=== PATIENT | female | born 1935 | race Caucasian/White ===

== ENCOUNTER 2021-12-01 07:13 | Day surgery (SDC) | payer MEDICARE, SELFPAY ==
[2021-12-01] VITALS (9 sets, daily range): BP systolic 97–132; BP diastolic 52–76; PULSE 66–75; RESP 16–18; TEMP 36.4–37; O2SAT 92–98; BMI 21.7
[2021-12-01] MEDS: Lactated Ringers 1,000 ML 15 ML IV (08:13)
--- NOTE | 2021-12-01 08:50 | PCM.HP.STD ---
HPI - General HPI Narrative MICHELLE DE LA CRUZ, is a 86 F who presents for removal and replacement of her InterStim as the battery has and she has been running it and increasing power settings over the last 2 years. She is happy with the device and would like to have the new one inserted in the same location if possible. Questions were answered and informed consent was obtained. Daughters present. [facility] Medical History (Updated 12/01/21 @ 08:[address] Leena Correia MD) Arthritis Back pain Bladder disease Cancer Forgetfulness Gastric reflux High cholesterol History of edema History of IBS Hypertension Leg cramps Nocturia Nocturnal enuresis Non-smoker Syncope Urge incontinence Walker as ambulation aid Wears dentures Wears glasses Wears hearing aid Home Medications amlodipine 2.5 mg PO DAILY 11/24/21 [History Last Taken 12/01/21] aspirin [Aspir-81] 81 mg PO DAILY 11/24/21 [History Last Taken 11/26/21] atorvastatin [Lipitor] 40 mg PO DAILY 11/24/21 [History Last Taken Unknown] carvedilol 25 mg PO BID 11/24/21 [History Last Taken 12/01/21] celecoxib [Celebrex] 100 mg PO DAILY 11/24/21 [History Last Taken Unknown] cevimeline 1 cap PO TID 11/24/21 [History Last Taken 12/01/21] dicyclomine 10 mg PO BID PRN 11/24/21 [History Last Taken Unknown] diphenoxylate-atropine 1 tab PO BID 11/24/21 [History Last Taken 12/01/21] duloxetine 60 mg PO DAILY 11/24/21 [History Last Taken 12/01/21] esomeprazole magnesium 40 mg PO DAILY 11/24/21 [History Last Taken 12/01/21] ezetimibe [Zetia] 10 mg PO DAILY 11/24/21 [History Last Taken Unknown] hydroxychloroquine 200 mg PO DAILY 11/24/21 [History Last Taken Unknown] meclizine 25 mg PO BID 11/24/21 [History Last Taken 12/01/21] pilocarpine HCl 5 mg PO 4X/DAY 11/24/21 [History Last Taken 12/01/21] potassium chloride 10 meq PO DAILY 11/24/21 [History Last Taken Unknown] pregabalin [Lyrica] 50 mg PO DAILY 11/24/21 [History Last Taken 12/01/21] tramadol-acetaminophen 1 tab PO TID PRN 11/24/21 [History Last Taken Unknown] vitamin [id number]-[id number] acid 1 tab SUBLINGUAL DAILY 11/24/21 [History Last Taken Unknown] Allergy/AdvReac Type Severity Reaction Status Date / Time bupropion [From Wellbutrin] Allergy PT UNSURE Verified 11/24/21 12:46 OF REACTION glucosamine Allergy PT UNSURE Verified 11/24/21 12:46 OF REACTION levofloxacin [From Levaquin] Allergy PT UNSURE Verified 11/24/21 12:46 OF REACTION paroxetine [From Paxil] Allergy Rash Verified 11/24/21 12:46 tetanus toxoid, adsorbed Allergy Rash Verified 11/24/21 12:46 vancomycin Allergy Rash Verified 11/24/21 12:46 Surgical History History of dental surgery Hx of colonoscopy Hx of kyphoplasty Hx of left mastectomy Hx of total knee arthroplasty Social History Smoking Status: Never smoker ROS Constitutional Constitutional: Denies anorexia, body ache(s), change in weight or fever(s) Eyes Eyes: Reports systems reviewed and no addt'l complaints, except as documented ENT HEENT: Reports systems reviewed and no addt'l complaints, except as documented Cardiovascular Cardiovascular: Denies abdominal pain, chest pain, dyspnea, nausea or vomiting Respiratory/Chest Respiratory/Chest: Denies chest tightness, cough, dyspnea or inability to speak Gastrointestinal Gastrointestinal: Denies abdominal pain, nausea or vomiting Genitourinary Genitourinary: Reports nocturia, urinary frequency and urinary incontinence Musculoskeletal Musculoskeletal: Reports systems reviewed and no addt'l complaints, except as documented Integumentary Integumentary: Reports systems reviewed and no addt'l complaints, except as documented Neurologic Neurologic: Reports systems reviewed and no addt'l complaints, except as documented Psychiatric Psychiatric: Reports systems reviewed and no addt'l complaints, except as documented Endocrine Endocrinology: Reports systems reviewed and no addt'l complaints, except as documented Hematologic/Lymphatic Hematologic/Lymphatic: Reports systems reviewed and no addt'l complaints, except as documented Allergic/Immunologic Allergic/Immunologic: Reports systems reviewed and no addt'l complaints, except as documented Vital Signs Vital Signs Vital Signs: 12/01/21 08:00 Temperature 98.6 F Temperature Source Temporal Pulse Rate 66 Respiratory Rate 18 Respiratory Pattern Normal Blood Pressure 132/66 H Blood Pressure Mean 88 Blood Pressure Source Monitor Blood Pressure Position Semi-Fowlers Blood Pressure Location Left Arm Pulse Ox 94 Oxygen Delivery Method Room Air Weight Weight: 54 kg Body Mass Index (BMI) 21.7 Physical Exam Const alert, oriented x3 and no apparent distress HEENT normocephalic, head/scalp atraumatic, hearing grossly normal bilaterally and external nose normal Eyes conjunctivae normal and no scleral icterus General Eye: normal appearance of both eyes Neck supple General: trachea midline Lymph Lymphatic: no lymphedema noted Chest inspection of chest normal Chest: symmetrical chest wall rise Resp normal respiratory effort, normal air movement, no retractions and no use of accessory muscles Cardio regular rate and regular rhythm GI soft to palpation, non-tender and non-distended no CVA tenderness Back/Spine no CVA tenderness Extremity normal to inspection Skin no rashes or lesions noted, no wounds, skin turgor normal, no jaundice, no petechiae and no mottling Neuro oriented x3, CN's II-XII intact bilaterally and moves all extremities Psych mental status grossly normal, thought process normal and cooperative Assessment & Plan Assessment/Plan (1) Urge incontinence: (2) Nocturia: (3) Nocturnal enuresis: PLAN: Proceed with InterStim removal and replacement, stage I and II Informed consent obtained
--- NOTE | 2021-12-01 08:57 | OP.PCM_ITS ---
Problems Associated Problem List Diagnoses (1) Nocturnal enuresis: (2) Nocturia: (3) Urge incontinence: Report of Operation Date of Procedure: 12/01/21 Pre-Operative Diagnosis: Urinary urge incontinence, nocturia, nocturnal enuresis Post-Operative Diagnosis: Same Surgery/Procedure Performed:: InterStim removal and replacement stage I and II Surgeon: Leena Correia Type of Anesthesia: MAC Specimen's removed: InterStim lead and battery Description of Procedure: The patient is an 86-year-old female has had munoz ccessful management of her urge incontinence, nocturia and nocturnal enuresis with an InterStim. The battery has and her issues have returned. She now presents for removal and replacement of her InterStim lead and battery. Informed consent has been obtained. The patient was taken to the operating room and placed in a prone position on the operating room table. Anesthesia monitored the head, neck, airway, IV access and vital signs throughout the case. Once anesthesia was appropriate ministered the patient was prepped and draped in usual sterile fashion. Her existing pocket site and lead insertion site were opened with knife. The battery was brought into the field, the lead was cut and pulled into the insertion site incision. The lead in its entirety was then removed using hemostats. At this point a new needle was placed into the S3 foramen. Good response was achieved with blayne and toe flexion. The obturator was removed and the guidewire was placed followed by the dilator. At this point the lead was passed into the S3 foramen seen on fluoroscopic visualization. All 4 leads were tested and found to have good stimulation response. The pocket site was prepared with irrigation and Bovie cautery for hemostatic control. The sheath was then removed and the lead was tunneled into the existing pocket site. The lead was then placed into the new battery and secured using the torque wrench. The battery was placed into the pocket. Impedances were tested and found to be appropriate. The pocket was closed with 3-0 interrupted sutures followed by 4-0 subcuticular and skin glue. The incision over the lead insertion site was also closed with 4-0 and skin glue. The patient was awakened and taken to the recovery room in good condition. There were no complications during this procedure. Grafts/Implants Used: InterStim lead and battery Complications None Admit VTE Documentation VTE Present on Admission: No VTE Mechan Device Prophylaxis: None VTE Pharm Prophylaxis ordered?: No Reason prophylaxis not ordered:: Treatment Not Indicated
--- NOTE | 2021-12-01 09:06 | PCM.DC ---
Discharge Instructions Diet Discharge Diet: No restrictions Activity Discharge Activity: Return to Normal Activity and May Shower (in 2 days) Dressing / Incision Call your doctor if your incision/area has: Continuous Slow Oozing, Sudden Increased Bleeding, Increased Pain/ Swelling, Increased Redness, Foul Smelling Discharge and Swelling at the incision site Call your doctor if you observe: Fever of 101 or Higher and Inability to have a bowel movement Additional Dressing/Incision Instructions:: Do not pick the skin glue off, leave it to fall off on its own. Follow Up Care Please Follow Up With: Leena Correia MD When: call office for appt Test Results: Test results from this visit will be discussed in further detail at your follow-up appointment, if applicable. Discharge Plan Admission Attending Provider: Leena Correia Discharge Orders/Prescriptions Prescriptions: New oxycodone-acetaminophen [Percocet] 5-325 mg tablet 1 tab PO Q8H PRN (Reason: pain) 3 Days Qty: 10 RF: 0 cephalexin [cephalexin] 500 MG capsule 500 mg PO Q12 3 Days Qty: 6 RF: 0 Continued atorvastatin [Lipitor] 40 mg Tablet 40 mg PO DAILY RF: 0 pilocarpine HCl 5 mg Tablet 5 mg PO 4X/DAY RF: 0 carvedilol 25 mg Tablet 25 mg PO BID RF: 0 potassium chloride 10 mEq Capsule, Extended Release 10 meq PO DAILY RF: 0 tramadol-acetaminophen 37.5-325 mg Tablet 1 tab PO TID PRN (Reason: Pain) RF: 0 diphenoxylate-atropine 2.5-0.025 mg Tablet 1 tab PO BID RF: 0 amlodipine 2.5 mg Tablet 2.5 mg PO DAILY RF: 0 meclizine 25 mg Capsule 25 mg PO BID RF: 0 aspirin 81 mg Tablet,Delayed Release (Dr/Ec) 81 mg PO DAILY RF: 0 esomeprazole magnesium 40 mg Capsule,Delayed Release(Dr/Ec) 40 mg PO DAILY RF: 0 cevimeline 30 mg Capsule 1 cap PO TID RF: 0 hydroxychloroquine 200 mg Tablet 200 mg PO DAILY RF: 0 celecoxib [Celebrex] 100 mg Capsule 100 mg PO DAILY RF: 0 dicyclomine 10 mg Capsule 10 mg PO BID PRN (Reason: Cramps) RF: 0 ezetimibe [Zetia] 10 mg Tablet 10 mg PO DAILY RF: 0 duloxetine 60 mg Capsule,Delayed Release(Dr/Ec) 60 mg PO DAILY RF: 0 pregabalin [Lyrica] 50 mg Capsule 50 mg PO DAILY RF: 0 vitamin P02-twdyt acid 1,000-400 mcg Tablet, Sublingual 1 tab SUBLINGUAL DAILY RF: 0 Referrals / Follow Up: DERRELL FLORES [Other] Disposition Disposition (needs filled in before D/C Order can be placed): Home, Self Care
--- NOTE | 2021-12-01 09:09 | RAD_ITS ---
INDICATION: INTERSTIM EXAMINATION/TECHNIQUE: 3 limited spot intraoperative films are presented for evaluation. Total Fluoroscopic Time: 13.3 seconds AND number of Fluoroscopic Images: 3 OR Radiation dosage index: 8.29 mg COMPARISON: None. FINDINGS: Limited intraoperative InterStim placement images were submitted. A InterStim device is placed terminating over the right lower sacral ala. RAD/Pelvis 1 or 2 Views IMPRESSION: InterStim device placed terminating over the right lower sacral ala. Please see intraoperative report for detailed findings. Electronically Signed: Phillip Morrison, at 10:42 EDT ,
[2021-12-01] MEDS: Cefazolin 2 GM in 0.9% Normal Saline 100 ML IV (09:21)
[2021-12-01] MEDS: Lidocaine 1% /Epi 1:100 (50ml) 50 ML VIAL (09:56)
== END 2021-12-01 12:09 | disposition home or self-care (01) ==
LOC: SDC 07:19 → AC 07:21
PROVIDERS: Referring Provider Urology; Visit Provider Urology
PROC: (CPT 64580; principal; 2021-12-01 09:00)
DX: Z45.42 Encounter for adjustment and management of neurostimulator (principal); N39.41 Urge incontinence; Z79.82 Long term (current) use of aspirin; I10 Essential (primary) hypertension; N39.44 Nocturnal enuresis; E78.00 Pure hypercholesterolemia, unspecified; K21.9 Gastro-esophageal reflux disease without esophagitis; K58.9 Irritable bowel syndrome, unspecified; Z79.899 Other long term (current) drug therapy
CPT/HCPCS: 64580; 00400; 72170; 76000; J7120; C1767; C1820; J2405